=== PATIENT | male | born 1980 | race Caucasian/White ===

== ENCOUNTER 2018-05-23 09:35 | Emergency (ER) | payer SELFPAY ==
[~2018-05-23] VITALS: Ht 177.8 cm; Wt 79.5 kg
[2018-05-23] MEDS ORDERED: HYDROmorphone 2 MG/ML, 1ML ONE ×2 (09:51→11:34)
[2018-05-23] MEDS ORDERED: ONDANSETRON 2MG/ML, 2ML ONE ×2 (09:51→11:06)
[2018-05-23] MEDS ORDERED: ONDANSETRON 2MG/ML, 2ML IVPush ONE ×2 (10:00→11:30)
[2018-05-23] MEDS ORDERED: HYDROmorphone 2 MG/ML, 1ML IVPush PRN ×2 (10:00→12:00)
[2018-05-23] MEDS ORDERED: ONDANSETRON ODT 4 MG ONE (10:08)
[2018-05-23] MEDS ORDERED: HYDROmorphone 2 MG/ML, 1ML IM ONE (10:30)
[2018-05-23] MEDS ORDERED: ONDANSETRON ODT 4 MG PO ONE (10:30)
[2018-05-23 10:33] LABS: BASOPHILS # (AUTO) 0.06 x10^3/uL (0-0.1); BASOPHILS % (AUTO) 0 % (0-1); EOSINOPHILS # (AUTO) 0.24 x10^3/uL (0-0.4); EOSINOPHILS % (AUTO) 2 % (1-7); LYMPHOCYTES # (AUTO) 2.48 x10^3/uL (1-3.4); LYMPHOCYTES % (AUTO) 18 % (22-44); MD NO; MEAN CORPUSCULAR HEMOGLOBIN 31.6 pg (27.5-34.5); MEAN CORPUSCULAR HGB CONC 34.4 g/dL (33.2-36.2); MEAN CORPUSCULAR VOLUME 91.8 fL (81-97); MEAN PLATELET VOLUME 8.2 fL (7.4-10.4); MONOCYTES # (AUTO) 0.86 x10^3/uL (0.2-0.8); MONOCYTES % (AUTO) 6 % (2-9); NEUTROPHILS # (AUTO) 10.14 x10^3/uL (1.8-6.8); NEUTROPHILS % (AUTO) 74 % (42-75); PLATELET COUNT 328 x10^3/uL (130-400); RED BLOOD COUNT 5.33 x10^6/uL (4.38-5.82); RED CELL DISTRIBUTION WIDTH 12.8 % (9.4-14.8)
[2018-05-23 10:41] LABS: ALANINE AMINOTRANSFERASE 36 U/L (12-78); ANION GAP 10 mmol/L (5-15); CALCIUM 9.2 mg/dL (8.5-10.1); CHLORIDE 105 mmol/L (98-107); CREATININE 1.01 mg/dL (0.7-1.3)
[2018-05-23 10:43] LABS: ALKALINE PHOSPHATASE 63 U/L (45-117); BILIRUBIN,TOTAL 0.9 mg/dL (0.2-1.0); TOTAL PROTEIN 7.5 g/dL (6.4-8.2)
[2018-05-23] MEDS ORDERED: SODIUM CHLORIDE 0.9% 1,000 ML IV ONE (12:04)
[2018-05-23] MEDS ORDERED: SODIUM CHLORIDE 0.9% 1,000ML IVBOLUS ONE (12:30)
[2018-05-23] MEDS ORDERED: PROMETHAZINE 25 MG/ML, 1ML ONE (12:54)
[2018-05-23 12:57] VITALS: BP 159/122
[2018-05-23] MEDS ORDERED: PROMETHAZINE 25 MG/ML, 1ML IM ONE (13:00)
== END 2018-05-23 13:43 | disposition left against medical advice (07) ==
LOC: ED 13:30
DX: N13.2 Hydronephrosis with renal and ureteral calculous obstruction (principal); F17.200 Nicotine dependence, unspecified, uncomplicated
CPT/HCPCS: 36415; 74176; 80053; 83690; 85025; 96361; 96372; 96374; 96375; 99285; J1170; J2405; J2550; J7030; Q0162

== ENCOUNTER 2018-05-24 10:07 | Emergency (ER) | payer SELFPAY ==
[~2018-05-24] VITALS: Ht 175.3 cm; Wt 90.9 kg
[2018-05-24] MEDS ORDERED: KETOROLAC 30 MG/1 ML IM ONE (12:00)
[2018-05-24] MEDS ORDERED: TAMSULOSIN 0.4 MG CAP.ER.24H PO ONE (12:00)
[2018-05-24 12:06] VITALS: BP 134/86
[2018-05-24] MEDS ORDERED: TAMSULOSIN 0.4 MG CAP.ER.24H ONE (12:13)
[2018-05-24] MEDS ORDERED: KETOROLAC 30 MG/1 ML ONE (12:13)
[2018-05-24 12:23] LABS: MICROSCOPIC INDICATED
== END 2018-05-24 12:41 | disposition left against medical advice (07) ==
LOC: ED 12:11
DX: N13.2 Hydronephrosis with renal and ureteral calculous obstruction (principal)
CPT/HCPCS: 81001; 96372; 99283; J1885